=== PATIENT | male | born 1950 | race Caucasian/White ===

== ENCOUNTER 2022-05-12 19:17 | Emergency (ER) | payer MEDICARE, SELFPAY ==
[2022-05-12] VITALS (7 sets, daily range): BP systolic 124–138; BP diastolic 69–83; PULSE 71–88; RESP 16–18; TEMP 37.7–38.3; O2SAT 98–99; BMI 27.1
[2022-05-12 20:35] LABS: PCR FLU A Negative PCR FLU A (Negative); PCR FLU B Negative PCR FLU B (Negative); PCR RSV Negative PCR RSV (Negative)
--- NOTE | 2022-05-12 20:35 | ED_ITS ---
HPI - General Adult General Chief complaint: Fever Stated complaint: Fever Chills Fatigue Time Seen by Provider: 05/12/22 20:10 Source: patient Mode of arrival: ambulatory Limitations: no limitations History of Present Illness HPI narrative: 71-year-old male coming in today complaining of fevers, chills generalized achiness going on for about 5 days. States that he little pings of pain in his head that come and go as well, this is located over the right side of the head states that it feels like it is located in 3 locations right in front of the ear right in front and above the ear and right in front of below the ear. He describes as an electric shock that comes at varying frequencies but lasts a mere second. Started about the same time that he started getting fevers. Does not affect his vision or hearing, does not make him feel dizzy or lightheaded. Appetite is less than usual. He denies any chest pain or shortness of breath. He is not coughing. Denies any abdominal pain. He denies any diarrhea. He denies any dysuria, increased urinary frequency or urgency. He denies any sick contacts that he is aware of. He denies any weakness. He does feel more fatigued than usual. He denies any neurologic deficits such as focal weakness of any extremity. No slurred speech. Eyes any dental pain. He is a generally healthy male, takes no medications. Related Data Previous Rx's Medication Instructions Recorded amoxicillin 500 mg capsule 1,000 mg PO TID 5 days #30 caps 05/12/22 azithromycin 250 mg tablet See Taper PO DIRECTED #6 tabs 05/12/22 carbamazepine 200 mg tablet 100 mg PO BID #30 tabs 05/12/22 Allergies Allergy/AdvReac Type Severity Reaction Status Date / Time No Known Drug Allergies Allergy Verified 05/12/22 19:57 Review of Systems Status of ROS: Reports: 10 or more systems reviewed and unremarkable except as noted in History and below [facility] Social History Smoking Status: Never smoker How often do you have a drink containing alcohol: never AUDIT-C Alcohol total score: 0 Non-prescribed substance use: denies use Exam Narrative: Exam Narrative: Well-nourished well-developed patient in no acute distress. Alert and oriented. Answers questions appropriately. Mood and affect are appropriate. Thoughts are goal oriented and rational. No tangential or magical thinking noted. Patient speaks in full sentences without needing to catch their breath. HEENT: Normocephalic atraumatic. Pupils are equally round reactive to light. Extraocular muscles are intact. Conjunctivae are moist without any icterus noted. He has no increased lacrimation. Moist mucous membranes. Posterior pharynx is normal. I do not appreciate any evidence of infection in his mouth or gums. Neck is soft without any lymphadenopathy or thyromegaly. No masses are appreciated. Face is symmetric. He has no masses appreciated over the lateral face. TMs are clear bilaterally. Normal ear canals. Cardiovascular: Heart is regular rate and rhythm S1 and S2 are present without any murmurs. Lungs: Clear to auscultation bilaterally no wheezes rhonchi or rales are appreciated. Patient takes deep breaths without any discomfort. Abdomen: Soft and nontender nondistended with normal bowel sounds. No guarding or rebound. No masses or organomegaly appreciated. Extremities: Bilateral lower extremities are without edema. Normal DP and PT pulses. Skin: Well perfused without any obvious rashes. Strength is 5/5 of the upper and lower extremities. Reflexes are 2+ and symmetric at the knees. Cranial nerves 3-12 are normal. There is no nystagmus either horizontally or vertically. Gait is normal. Const: Vital Signs, click to edit/add: Vital Signs - 24 hr 05/12/22 19:57 05/12/22 21:18 05/12/22 21:22 Temperature 101.0 F H 100.1 F H Pulse Rate [Right Pulse Oximeter] 88 74 Respiratory Rate 18 16 Blood Pressure [Ri ght Upper Arm] 124/69 131/83 Pulse Oximetry 99 98 98 Oxygen Delivery Me thod Room Air Room Air 05/12/22 21:57 Temperature Pulse Rate [Right Pulse Oximeter] 71 Respiratory Rate 16 Blood Pressure [Ri ght Upper Arm] 138/75 Pulse Oximetry 98 Oxygen Delivery Me thod Room Air Course Course Hospital Course: Influenza, COVID, RSV were all negative therefore we proceeded with lab work. White cell count was normal. Mild hyponatremia present. CRP markedly elevated at just above 19. Chest x-ray, read by me, does show a left-sided infiltrate. Radiological over-read in agreement with a possible infiltrate over the left lingula. Hematuria present. Patient received a dose of azithromycin, amoxicillin and Toradol while he was here. He did feel that the frequency of the electric shocks of his face did increase while he was here. Vital Signs Vital signs: Initial Vital Signs Temperature 101.0 F H 05/12/22 19:57 Temperature Source Temporal Artery Scan 05/12/22 19:57 Pulse Rate 88 05/12/22 19:57 Respiratory Rate 18 05/12/22 19:57 Blood Pressure 124/69 05/12/22 19:57 Blood Pressure Mean 87 05/12/22 19:57 Blood Pressure Position Sitting 05/12/22 19:57 Pulse Oximetry 99 05/12/22 19:57 Oxygen Delivery Method 05/12/22 19:57 Vital Signs Temperature 101.0 F H 05/12/22 19:57 Pulse Rate 88 05/12/22 19:57 Respiratory Rate 18 05/12/22 19:57 Blood Pressure 124/69 05/12/22 19:57 Pulse Oximetry 99 05/12/22 19:57 Oxygen Delivery Method 05/12/22 19:57 Temperature 100.1 F H 05/12/22 21:18 Pulse Rate 71 05/12/22 21:57 Respiratory Rate 16 05/12/22 21:57 Blood Pressure 138/75 05/12/22 21:57 Pulse Oximetry 98 05/12/22 21:57 Oxygen Delivery Method 05/12/22 21:57 Medical Decision Making MDM Narrative Medical decision making narrative: 71-year-old male with pneumonia. Will treat with azithromycin and amoxicillin. Symptoms consistent with trigeminal neuralgia-patient given 1 dose of Toradol IV in the ER today. I think that his symptoms might be alleviated if we treat the pneumonia and the stress that his body is currently undergoing. I will also send home with carbamazepine which he can start if he feels like there has been no difference over the next several days. If he is getting worse instead of better I do encourage him to return to the ER. Hematuria-recommend follow-up with primary care. Lab Data Lab results reviewed: Yes I reviewed the patient's lab results Labs: Lab Results 05/12/22 05/12/22 05/12/22 Range/Units 19:53 20:56 20:56 WBC 10.17 (4.50-11.00) K/uL RBC 4.48 (4.30-5.90) m/uL Hgb 14.7 (13.5-17.5) gm/dL Hct 43.1 (37.0-53.0) % MCV 96 (80-100) fL MCH 33 (26-34) pg MCHC 34 (32-36) gm/dL RDW Coeff of Mai 12.3 (11.5-15.5) % Plt Count 213 (140-440) K/uL Neut % (Auto) 77.3 H (42.0-72.0) % Lymph % (Auto) 7.4 L (20-44) % [place] % (Auto) 14.6 H (0.0-11.0) % Eos % (Auto) 0.1 (0.0-7.0) % Baso % (Auto) 0.3 (0.0-3.0) % Neut # (Auto) 7.90 H (1.7-7.0) K/uL Lymph # (Auto) 0.80 L (0.90-2.90) K/uL [place] # (Auto) 1.50 H (0.00-0.90) K/UL Eos # (Auto) 0.01 (0.00-0.50) K/uL Baso # (Auto) 0.03 (0.00-0.30) K/uL Abs Immat Gran (auto) 0.03 (0.00-0.30) K/uL Imm/Tot Granulo (auto) 0.3 % Sodium (135-149) mmol/L Potassium (3.6-5.1) mmol/L Chloride (96-114) mmol/L Carbon Dioxide (20-32) mmol/L BUN (7-30) mg/dL Creatinine (0.5-1.5) mg/dL Estimated Creat Clear Estimated GFR ml/min Glucose (60-115) mg/dL Lactate (0.5-1.9) mmol/L Calcium (8.4-10.6) mg/dL C-Reactive Protein (0.5-1.0) mg/dL Urine Color Cleo A (Yellow) Urine Appearance Clear (Clear) Urine pH 5.5 (5.0-8.5) Ur Specific [place] 1.025 (1.000-1.030) Urine Protein 2+ A (Negative) Urine Glucose (UA) Negative (Negative) Urine Ketones Trace A (Negative) Urine Blood 2+ A (Negative) Urine Nitrite Negative (Negative) Urine Bilirubin 1+ A (Negative) Urine Urobilinogen 0.2 (0.2-1.0) Ur Leukocyte Esterase Negative (Negative) Urine RBC 2-5 A (0-2) Urine WBC 0-2 (0-5) Ur Squamous Epith Cells Few (None-Few) Urine Bacteria None (None) SARS-CoV-2 (PCR) Negative SARS-CoV-2 (Negative) Influenza Type A (PCR) Negative PCR FLU A (Negative) Influenza Type B (PCR) Negative PCR FLU B (Negative) RSV (PCR) Negative PCR RSV (Negative) 05/12/22 05/12/22 Range/Units 20:56 20:56 WBC (4.50-11.00) K/uL RBC (4.30-5.90) m/uL Hgb (13.5-17.5) gm/dL Hct (37.0-53.0) % MCV (80-100) fL MCH (26-34) pg MCHC (32-36) gm/dL RDW Coeff of Mai (11.5-15.5) % Plt Count (140-440) K/uL Neut % (Auto) (42.0-72.0) % Lymph % (Auto) (20-44) % [place] % (Auto) (0.0-11.0) % Eos % (Auto) (0.0-7.0) % Baso % (Auto) (0.0-3.0) % Neut # (Auto) (1.7-7.0) K/uL Lymph # (Auto) (0.90-2.90) K/uL [place] # (Auto) (0.00-0.90) K/UL Eos # (Auto) (0.00-0.50) K/uL Baso # (Auto) (0.00-0.30) K/uL Abs Immat Gran (auto) (0.00-0.30) K/uL Imm/Tot Granulo (auto) % Sodium 132 L (135-149) mmol/L Potassium 4.1 (3.6-5.1) mmol/L Chloride 97 (96-114) mmol/L Carbon Dioxide 30 (20-32) mmol/L BUN 17 (7-30) mg/dL Creatinine 1.1 (0.5-1.5) mg/dL Estimated Creat Clear 57.86 Estimated GFR 71 ml/min Glucose 119 H (60-115) mg/dL Lactate 1.3 (0.5-1.9) mmol/L Calcium 8.6 (8.4-10.6) mg/dL C-Reactive Protein 19.4 H (0.5-1.0) mg/dL Urine Color (Yellow) Urine Appearance (Clear) Urine pH (5.0-8.5) Ur Specific [place] (1.000-1.030) Urine Protein (Negative) Urine Glucose (UA) (Negative) Urine Ketones (Negative) Urine Blood (Negative) Urine Nitrite (Negative) Urine Bilirubin (Negative) Urine Urobilinogen (0.2-1.0) Ur Leukocyte Esterase (Negative) Urine RBC (0-2) Urine WBC (0-5) Ur Squamous Epith Cells (None-Few) Urine Bacteria (None) SARS-CoV-2 (PCR) (Negative) Influenza Type A (PCR) (Negative) Influenza Type B (PCR) (Negative) RSV (PCR) (Negative) Imaging Data Chest x-ray: Attestation: I have reviewed the pertinent imaging results. Radiologist's impression: TECHNIQUE: Chest 2 views. COMPARISON: None. FINDINGS: Cardiovascular and mediastinum: Heart size and vasculature are normal in caliber and appearance. Lungs and pleural spaces: Subtle patchy airspace opacities in the lingula. No sign of pleural effusion. No pneumothorax. Bones and soft tissues: No significant findings. IMPRESSION: Subtle patchy airspace opacities in the lingula, possibly infectious/inflammatory in etiology. Discharge Plan Discharge Clinical Impression: Hematuria, Trigeminal neuralgia, Pneumonia Patient Disposition: Home, Self-Care Condition: Stable Additional Instructions: Take all antibiotics as prescribed for your pneumonia. Also take Tylenol as needed/as directed for fevers. Can start taking carbamazepine as prescribed for the facial pain if you do not notice a difference in the next couple of days. You were found to have some blood in your urine today-this is not an emergency but you should follow-up with your primary care provider for further testing. Return to the ER if you feel like you are getting worse instead of better. Prescriptions: New azithromycin 250 mg tablet See Taper PO DIRECTED Qty: 6 0RF Taper: Z-RADHA 500 mg Q24H for 1 Day and 0 Hour 250 mg Q24H for 4 Days and 0 Hour Rx Instructions: For 250 mg dose pack: take 500 mg today (day 1), then 250 mg for 4 days (days 2-5) amoxicillin 500 mg capsule 1,000 mg PO TID 5 Days Qty: 30 0RF carbamazepine 200 mg tablet 100 mg PO BID Qty: 30 0RF Follow Up/Referrals: Provider,Not a Local [Primary Care Provider] - Stand Alone Forms: [employer] Info Instructions
[2022-05-12 20:38] LABS: SARS PCR* Negative SARS-CoV-2 (Negative)
--- NOTE | 2022-05-12 20:41 | CRLHL7_ITS ---
For Patients: As a result of the Century Cures Act, medical imaging exams and procedure reports are released immediately into your electronic medical record. You may view this report before your referring provider. If you have questions, please contact your health care provider. INDICATION: Shortness of breath. TECHNIQUE: Chest 2 views. COMPARISON: None. FINDINGS: Cardiovascular and mediastinum: Heart size and vasculature are normal in caliber and appearance. Lungs and pleural spaces: Subtle patchy airspace opacities in the lingula. No sign of pleural effusion. No pneumothorax. Bones and soft tissues: No significant findings. IMPRESSION: Subtle patchy airspace opacities in the lingula, possibly infectious/inflammatory in etiology. Dictated by Moreno Fierro MD @ 05/12/2022 9:47:58 PM (Electronically Signed)
[2022-05-12 21:10] LABS: Lactate* 1.3 mmol/L (0.5-1.9)
[2022-05-12 21:13] LABS: Basophils Absolute Auto 0.03 K/uL (0.00-0.30); Basophils Percent Auto 0.3 % (0.0-3.0); Eosinophils Absolute Auto 0.01 K/uL (0.00-0.50); Eosinophils Percent Auto 0.1 % (0.0-7.0); Hematocrit 43.1 % (37.0-53.0); Hemoglobin* 14.7 gm/dL (13.5-17.5); Immature Granulocytes Abs Auto 0.03 K/uL (0.00-0.30); Immature Granulocytes Pct Auto 0.3 %; Lymphocytes Percent Auto 7.4 % (20-44); Mean Corpuscular HGB Conc 34 gm/dL (32-36); Mean Corpuscular Hemoglobin 33 pg (26-34); Mean Corpuscular Volume 96 fL (80-100); Monocytes Percent Auto 14.6 % (0.0-11.0); Neutrophils Percent Auto 77.3 % (42.0-72.0); Platelet Count* 213 K/uL (140-440); RDW Coefficient of Variation % 12.3 % (11.5-15.5); Red Blood Count 4.48 m/uL (4.30-5.90); White Blood Count* 10.17 K/uL (4.50-11.00)
[2022-05-12 21:16] LABS: Appearance Urine Clear (Clear); Bilirubin Urine 1+ (Negative); Blood Urine 2+ (Negative); Color Urine Amber (Yellow); Glucose Urine Negative (Negative); Ketones Urine Trace (Negative); Leukocyte Esterase Urine Negative (Negative); Nitrite Urine Negative (Negative); Protein Urine 2+ (Negative); Slide Review Reflex No; Specific Gravity Urine 1.025 (1.000-1.030); Urobilinogen Urine 0.2 (0.2-1.0); pH Urine 5.5 (5.0-8.5)
[2022-05-12 21:27] LABS: Chloride* 97 mmol/L (96-114); Sodium* 132 mmol/L (135-149)
[2022-05-12 21:28] LABS: Potassium* 4.1 mmol/L (3.6-5.1)
[2022-05-12 21:30] LABS: Creatinine* 1.1 mg/dL (0.5-1.5); Est. Creatinine Clearance* 57.86; Estimated Glomerular Filt Rate 71 ml/min
[2022-05-12 21:31] LABS: Blood Urea Nitrogen* 17 mg/dL (7-30); Calcium* 8.6 mg/dL (8.4-10.6); Carbon Dioxide* 30 mmol/L (20-32); Glucose* 119 mg/dL (60-115)
[2022-05-12 21:46] LABS: C Reactive Protein* 19.4 mg/dL (0.5-1.0)
[2022-05-12 22:00] LABS: WBC Urine 0-2 (0-5)
[2022-05-12 22:01] LABS: Squamous Epithelial Cell Urine Few (None-Few)
[2022-05-12] MEDS: AZITHROMYCIN 250 MG TABLET 500 MG PO (22:21)
[2022-05-12] MEDS: AMOXICILLIN 250 MG CAPSULE 1000 MG PO (22:26)
[2022-05-12] MEDS: KETOROLAC 30 MG/ML inj IV (22:27)
[2022-05-12 22:29] LABS: Erythrocyte SedimentationRate* 70 mm/hr (2-15)
== END 2022-05-12 22:47 | disposition home or self-care (01) ==
PROVIDERS: Emergency Provider Family Medicine
DX: R31.9 Hematuria, unspecified (principal); G50.0 Trigeminal neuralgia; J18.9 Pneumonia, unspecified organism
CPT/HCPCS: 36415; 71046; 80048; 81001; 83605; 85025; 85651; 86140; 87040; 87086; 87502; 87634; 87635; 94761; 96374; 99285; A9270; J1885